=== PATIENT | male | born 1975 | race Two or more races ===

== ENCOUNTER 2017-05-04 03:08 | Emergency (ER) | payer MEDICAID ==
[~2017-05-04] VITALS: Ht 170.2 cm; Wt 81.6 kg
[2017-05-04 03:56] LABS: Urine Bilirubin Negative (Negative); Urine Blood TRACE /uL (Negative); Urine Color Yellow (Yellow); Urine Glucose Normal (Normal); Urine Ketone Negative (Negative); Urine Mucus FEW (None Seen); Urine Nitrite Negative (Negative); Urine RBC 1 /hpf (0 - 3); Urine Urobilinogen Normal (Negative); Urine pH 5.5 (5.0-8.0)
[2017-05-04 04:03] LABS: Basophils # (auto) 0 uL; Basophils % (auto) 0.6 % (0.0-2.0); CONDITION Y; Eosinophils # (auto) 0.2 uL; Eosinophils % (auto) 3.5 % (0.0-7.0); Hematocrit 43.9 % (41.0-53.0); Hemoglobin 14.8 g/dL (13.5-17.5); Lymphocytes # (auto) 2.8 uL; Lymphocytes % (auto) 45.1 % (10.0-50.0); Mean Corpuscular Hemoglobin 29.2 pg (28.0-32.0); Mean Corpuscular Hgb Conc. 33.6 g/dL (32.0-36.0); Mean Corpuscular Volume 86.9 fL (80.0-100.0); Mean Platelet Volume 8.4 fL (7.4-10.4); Monocytes # (auto) 0.4 uL; Monocytes % (auto) 6.4 % (0.0-12.0); Neutrophils # (auto) 2.8 uL; Neutrophils % (auto) 44.4 % (37.0-80.0); Platelet Count (auto) 282 10^3/uL (140-450); Red Cell Distribution Width 13.4 % (11.6-16.0); White Blood Cell 6.3 10^3/uL (4.4-10.8)
[2017-05-04 04:13] LABS: INR 0.95 (0.9-1.15); Partial Thromboplastin Time 26.1 sec (22.64-33.71); Prothrombin Time 10.4 sec (9.37-12.3)
[2017-05-04 04:25] LABS: Albumin 3.7 g/dL (3.4-5.0); BUN/Creatinine Ratio 23.5; Bilirubin, Total 0.4 mg/dL (0.2-1.0); Calcium 8.6 mg/dL (8.5-10.1); Magnesium 2.5 mg/dL (1.6-2.6); Potassium 3.7 mmol/L (3.5-5.1); Total Protein 6.6 g/dL (6.4-8.2)
[2017-05-04 04:27] LABS: B-Type Natriuretic Peptide 9.99 pg/mL (0-100)
[2017-05-04 04:31] LABS: Temperature: 23.5 C (20.0-25.0)
[2017-05-04 06:57] VITALS: BP 108/67
== END 2017-05-04 07:12 | disposition home or self-care (01) ==
LOC: ER 03:08
DX: F41.9 Anxiety disorder, unspecified (principal); R51 Headache
CPT/HCPCS: 36415; 71010; 80053; 80307; 81001; 83735; 83880; 84484; 85025; 85610; 85730; 93005

== ENCOUNTER 2017-05-23 23:32 | Emergency (ER) | payer MEDICAID ==
[~2017-05-23] VITALS: Ht 167.6 cm; Wt 81.6 kg
[2017-05-24 00:09] LABS: Basophils # (auto) 0 uL; Basophils % (auto) 0.5 % (0.0-2.0); Eosinophils # (auto) 0.1 uL; Eosinophils % (auto) 0.9 % (0.0-7.0); Hematocrit 43.7 % (41.0-53.0); Hemoglobin 14.9 g/dL (13.5-17.5); Lymphocytes # (auto) 3.1 uL; Lymphocytes % (auto) 37.3 % (10.0-50.0); Mean Corpuscular Hemoglobin 29.7 pg (28.0-32.0); Mean Corpuscular Volume 87.2 fL (80.0-100.0); Mean Platelet Volume 8.3 fL (7.4-10.4); Monocytes # (auto) 0.4 uL; Monocytes % (auto) 5.1 % (0.0-12.0); Neutrophils # (auto) 4.7 uL; Neutrophils % (auto) 56.2 % (37.0-80.0); Platelet Count (auto) 293 10^3/uL (140-450); Red Cell Distribution Width 12.2 % (11.6-16.0); White Blood Cell 8.3 10^3/uL (4.4-10.8)
[2017-05-24 00:26] LABS: Albumin 3.9 g/dL (3.4-5.0); Anion Gap 9 (5-15); Aspartate Aminotransferase 16 U/L (15-37); BUN/Creatinine Ratio 19.8; Blood Urea Nitrogen 16 mg/dL (7-18); Calcium 8.3 mg/dL (8.5-10.1); Carbon Dioxide 24 mmol/L (21-32); Chloride 109 mmol/L (98-107); GFR African American 133 mL/min; GFR Non-African American 110 mL/min; Glucose 101 mg/dL (74-106); Magnesium 2.2 mg/dL (1.6-2.6); Potassium 3.7 mmol/L (3.5-5.1); Sodium 142 mmol/L (136-145)
[2017-05-24 00:29] LABS: B-Type Natriuretic Peptide 13.2 pg/mL (0-100)
[2017-05-24 00:31] LABS: Alkaline Phosphatase 60 U/L (45-117); Bilirubin, Total 0.5 mg/dL (0.2-1.0); Total Protein 7.3 g/dL (6.4-8.2)
[2017-05-24] MEDS ORDERED: ONDANSETRON HCL 4 MG/2 ML VIAL IV ONE (01:00)
[2017-05-24] MEDS ORDERED: MORPHINE SULF INJ 2 MG/ML SYRINGE 1ML IV ONE (01:00)
[2017-05-24 03:00] VITALS: BP 103/71
== END 2017-05-24 03:31 | disposition home or self-care (01) ==
LOC: ER 23:34
DX: S16.1XXA Strain of muscle, fascia and tendon at neck level, initial encounter (principal); R07.89 Other chest pain; M79.602 Pain in left arm; X58.XXXA Exposure to other specified factors, initial encounter; Y93.89 Activity, other specified; Y92.89 Other specified places as the place of occurrence of the external cause; Y99.8 Other external cause status
CPT/HCPCS: 36415; 71010; 80053; 83735; 83880; 84484; 85025; 85379; 93005; 94761; 96374; 96375; 99285; J2270; J2405

== ENCOUNTER 2019-06-22 17:41 | Emergency (ER) | payer SELFPAY ==
[~2019-06-22] VITALS: Ht 170.2 cm; Wt 81.6 kg
[2019-06-22] MEDS ORDERED: SODIUM CHLORIDE 0.9% 1,000 ML IV ONE (19:00)
[2019-06-22] MEDS ORDERED: cefTRIAXone 1GM/50ML D5W 50 ML IV ONE (19:00)
[2019-06-22] MEDS ORDERED: MORPHINE SULFATE 4 MG/ML SYR/VIAL IV ONE ×2 (19:00→21:00)
[2019-06-22] MEDS ORDERED: ONDANSETRON HCL 4 MG/2 ML VIAL IV ONE (19:00)
[2019-06-22] MEDS ORDERED: MIDAZOLAM HCL 0 ML IV ONE (19:16)
[2019-06-22] MEDS ORDERED: MIDAZOLAM DRIP 50 mg/50mL 50 ML IV ONE (19:17)
[2019-06-22 19:39] LABS: Basophils # (auto) 0 uL; Basophils % (auto) 0.5 % (0.0-2.0); Eosinophils # (auto) 0.1 uL; Eosinophils % (auto) 1.3 % (0.0-7.0); Hemoglobin 14.2 g/dL (13.5-17.5); Lymphocytes # (auto) 1.9 uL; Lymphocytes % (auto) 23.4 % (10.0-50.0); Mean Corpuscular Hemoglobin 29.6 pg (28.0-32.0); Mean Corpuscular Hgb Conc. 33.9 g/dL (32.0-36.0); Mean Corpuscular Volume 87.3 fL (80.0-100.0); Monocytes # (auto) 0.5 uL; Monocytes % (auto) 5.5 % (0.0-12.0); Neutrophils # (auto) 5.7 uL; Neutrophils % (auto) 69.3 % (37.0-80.0); Platelet Count (auto) 240 10^3/uL (140-450); Red Blood Cells 4.81 10^6/uL (4.5-5.90); Red Cell Distribution Width 13.1 % (11.8-14.3); White Blood Cell 8.3 10^3/uL (4.4-10.8)
[2019-06-22 19:59] LABS: INR 0.93 (0.9-1.15); Partial Thromboplastin Time 23.4 sec (23.64-32.05)
[2019-06-22 20:01] LABS: Albumin 3.7 g/dL (3.4-5.0); Calcium 8.1 mg/dL (8.5-10.1); Potassium 3.8 mmol/L (3.5-5.1)
[2019-06-22 20:03] LABS: Bilirubin, Total 0.3 mg/dL (0.2-1.0)
[2019-06-22 21:00] VITALS: BP 127/91
[2019-06-22] MEDS ORDERED: HYDROcodone-ACET 5/325MG TAB PO ONE (22:30)
== END 2019-06-22 23:34 | disposition home or self-care (01) ==
LOC: ER 17:47
DX: S62.301B Unspecified fracture of second metacarpal bone, left hand, initial encounter for open fracture (principal); E78.5 Hyperlipidemia, unspecified; W22.8XXA Striking against or struck by other objects, initial encounter; Y93.89 Activity, other specified; Y99.8 Other external cause status; Y92.89 Other specified places as the place of occurrence of the external cause
CPT/HCPCS: 29125; 36415; 73130; 73200; 80053; 82550; 85025; 85610; 85730; 96365; 96375; 96376; 99284; J0696; J2270; J2405; J7030; J2250

== ENCOUNTER 2024-01-01 18:05 | Inpatient (IN) | payer SELFPAY ==
[~2024-01-01] VITALS: Ht 167.6 cm; Wt 82.5 kg
[2024-01-01 18:47] LABS: Basophils # (auto) 0 10 ^3/uL (0-0.2); Basophils % (auto) 0.6 % (0.0-2.0); Eosinophils # (auto) 0.3 10 ^3/uL (0-0.8); Eosinophils % (auto) 3.6 % (0.0-7.0); Hematocrit 44.3 % (41.0-53.0); Lymphocytes # (auto) 3.7 10 ^3/uL (0.4-5.4); Lymphocytes % (auto) 49.9 % (10.0-50.0); Mean Corpuscular Hemoglobin 29.4 pg (28.0-32.0); Mean Corpuscular Hgb Conc. 33.9 g/dL (32.0-36.0); Mean Corpuscular Volume 86.7 fL (80.0-100.0); Monocytes # (auto) 0.4 10 ^3/uL (0-1.3); Neutrophils % (auto) 40.9 % (37.0-80.0); Nucleated Red Blood Cells % 0.1 %; Red Blood Cells 5.11 10^6/uL (4.5-5.90); Red Cell Distribution Width 13.2 % (11.8-14.3); White Blood Cell 7.4 10^3/uL (4.4-10.8)
[2024-01-01 19:02] LABS: Alanine Aminotransferase 42 U/L (7-40); Albumin 4.5 g/dL (3.2-4.8); Alkaline Phosphatase 68 U/L (46-116); Anion Gap 7 (5-15); Aspartate Aminotransferase 27 U/L (13-40); BUN/Creatinine Ratio 16.3 (10.0-20.0); Blood Urea Nitrogen 15 mg/dL (9-23); Calcium 9.7 mg/dL (8.7-10.4); Carbon Dioxide 27 mmol/L (20-30); Chloride 105 mmol/L (98-107); Glucose 117 mg/dL (74-106); Magnesium 2.4 mg/dL (1.6-2.6); Potassium 3.8 mmol/L (3.5-5.1); Sodium 139 mmol/L (136-145)
[2024-01-01 19:03] LABS: Bilirubin, Total 0.5 mg/dL (0.2-1.0); INR 0.95 (0.9-1.15); Partial Thromboplastin Time 26.5 SEC (24.5-34.5); Total Protein 6.8 g/dL (5.7-8.2)
[2024-01-01] MEDS: SODIUM CHLORIDE 0.9% 1,000 ML IV ONE (19:03)
[2024-01-01] MEDS: ASPirin 325 MG TAB PO ONE (19:06)
[2024-01-01] MEDS: NITROGLYCERIN 0.4 MG SL TAB SL ONE (19:07)
[2024-01-01] MEDS: IOHEXOL 350 MG/ML 100ML IJ ONE (20:23)
[2024-01-01 20:34] LABS: Urine Bacteria NONE SEEN /hpf (None Seen); Urine Blood TRACE /uL (Negative); Urine Clarity Clear (Clear); Urine Color Colorless (Yellow); Urine Protein, UAD Negative (Negative); Urine Specific Gravity 1.017 (1.001-1.035); Urine Urobilinogen Normal (Negative); Urine WBC 1 /hpf (0 - 3); Urine pH 6.5 (5.0-8.0)
[2024-01-01 20:48] LABS: Amphetamine Screen, Urine Neg (NEGATIVE); Barbiturate Scree,Urine Neg (NEGATIVE); Benzodiazephine Screen, Urine Neg (NEGATIVE); Cocaine Screen, Urine Neg (NEGATIVE)
[2024-01-01 20:49] LABS: Cannabinoid Screen, Urine Neg (NEGATIVE); Opiate Scree,Urine Neg (NEGATIVE); Phencyclidine Screen, Urine Neg (NEGATIVE)
[2024-01-01] MEDS ORDERED: MORPHINE SULFATE INJ 2 MG/ml SYRG IV PRN ×2 (23:45)
[2024-01-01] MEDS ORDERED: ONDANSETRON HCL 4 MG/2 ML VIAL IV PRN (23:45)
[2024-01-01] MEDS ORDERED: HYDROcodone-ACET 5/325MG TAB PO PRN (23:45)
[2024-01-01] MEDS ORDERED: NITROGLYCERIN 0.4 MG SL TAB SL PRN (23:45)
[2024-01-01] MEDS ORDERED: DOCUSATE SOD 100 MG CAP PO PRN (23:45)
[2024-01-02] MEDS: SODIUM CHLORIDE 0.9% 1,000 ML IV SCH (00:30)
[2024-01-02 06:43] LABS: Basophils # (auto) 0 10 ^3/uL (0-0.2); Basophils % (auto) 0.5 % (0.0-2.0); Eosinophils # (auto) 0.3 10 ^3/uL (0-0.8); Eosinophils % (auto) 3.5 % (0.0-7.0); Hematocrit 43.9 % (41.0-53.0); Hemoglobin 14.6 g/dL (13.5-17.5); Lymphocytes # (auto) 3.3 10 ^3/uL (0.4-5.4); Lymphocytes % (auto) 47.1 % (10.0-50.0); Mean Corpuscular Hemoglobin 28.9 pg (28.0-32.0); Mean Corpuscular Hgb Conc. 33.1 g/dL (32.0-36.0); Mean Corpuscular Volume 87.2 fL (80.0-100.0); Monocytes # (auto) 0.5 10 ^3/uL (0-1.3); Monocytes % (auto) 6.8 % (0.0-12.0); Neutrophils % (auto) 42.1 % (37.0-80.0); Nucleated Red Blood Cells % 0.2 %; Red Blood Cells 5.04 10^6/uL (4.5-5.90); Red Cell Distribution Width 13.5 % (11.8-14.3); White Blood Cell 7.1 10^3/uL (4.4-10.8)
[2024-01-02 06:49] LABS: Alanine Aminotransferase 37 U/L (7-40); Albumin 4.3 g/dL (3.2-4.8); Alkaline Phosphatase 68 U/L (46-116); Anion Gap 2 (5-15); Aspartate Aminotransferase 20 U/L (13-40); BUN/Creatinine Ratio 14.9 (10.0-20.0); Blood Urea Nitrogen 11 mg/dL (9-23); Carbon Dioxide 28 mmol/L (20-30); Chloride 110 mmol/L (98-107); Glucose 89 mg/dL (74-106); Sodium 140 mmol/L (136-145)
[2024-01-02 06:50] LABS: Bilirubin, Total 0.7 mg/dL (0.2-1.0); Total Protein 6.5 g/dL (5.7-8.2)
[2024-01-02 09:17] LABS: Triglycerides 162 mg/dL (< 150)
[2024-01-02 09:18] LABS: LDL Cholesterol 195 mg/dL (< 100)
[2024-01-02 09:19] LABS: Cholesterol 247 mg/dL (< 200); HDL Cholesterol 45 mg/dL (40-59)
[2024-01-02] MEDS: ASPirin 81 mg TAB PO SCH (11:07)
[2024-01-02 11:09] VITALS: PULSE 80; RESP 19; O2SAT 96
[2024-01-02 17:50] VITALS: BP 126/81; PULSE 73; RESP 16; TEMP 98.7; O2SAT 95
[2024-01-02] MEDS: ACETAMINOPHEN 325 MG TAB PO PRN (18:34)
[2024-01-02] MEDS ORDERED: SERT-160 PO (19:20)
[2024-01-02 20:00] VITALS: PULSE 70
[2024-01-02] MEDS: ATORVASTATIN 20 MG TAB PO SCH (21:10)
[2024-01-02 22:00] VITALS: BP 101/59; PULSE 71; RESP 19; TEMP 98.2; O2SAT 91
[2024-01-02] MEDS ORDERED: ATORVASTATIN 20 MG TAB PO SCH (22:00)
[2024-01-03 05:00] VITALS: BP 107/71; PULSE 64; RESP 19; TEMP 97.7; O2SAT 95
[2024-01-03 08:00] VITALS: PULSE 63
[2024-01-03 08:50] VITALS: BP 104/66; PULSE 60; RESP 18; TEMP 98.2; O2SAT 98
[2024-01-03 12:22] LABS: Basophils # (auto) 0 10 ^3/uL (0-0.2); Basophils % (auto) 0.7 % (0.0-2.0); Eosinophils # (auto) 0.2 10 ^3/uL (0-0.8); Eosinophils % (auto) 2.9 % (0.0-7.0); Hemoglobin 14.5 g/dL (13.5-17.5); Lymphocytes # (auto) 2.9 10 ^3/uL (0.4-5.4); Lymphocytes % (auto) 44.7 % (10.0-50.0); Mean Corpuscular Hemoglobin 29.2 pg (28.0-32.0); Mean Corpuscular Hgb Conc. 33.6 g/dL (32.0-36.0); Mean Corpuscular Volume 86.8 fL (80.0-100.0); Monocytes # (auto) 0.4 10 ^3/uL (0-1.3); Monocytes % (auto) 5.6 % (0.0-12.0); Neutrophils % (auto) 46.1 % (37.0-80.0); Nucleated Red Blood Cells % 0.2 %; Red Blood Cells 4.96 10^6/uL (4.5-5.90); Red Cell Distribution Width 13.3 % (11.8-14.3); White Blood Cell 6.5 10^3/uL (4.4-10.8)
[2024-01-03 12:34] LABS: Chloride 108 mmol/L (98-107); Potassium 3.8 mmol/L (3.5-5.1); Sodium 140 mmol/L (136-145)
[2024-01-03 12:35] LABS: Anion Gap 5 (5-15); Carbon Dioxide 27 mmol/L (20-30)
[2024-01-03 12:36] LABS: Calcium 8.7 mg/dL (8.5-10.1)
[2024-01-03 12:40] LABS: BUN/Creatinine Ratio 13.3 (10.0-20.0); Blood Urea Nitrogen 10 mg/dL (9-23); Glucose 84 mg/dL (74-106)
[2024-01-03 12:59] LABS: Erythrocyte Sedimentation Rate 2 mm/hr (0-20)
[2024-01-03 13:00] VITALS: BP 106/64; PULSE 60; RESP 18; TEMP 98; O2SAT 95
[2024-01-03 13:01] LABS: Magnesium 1.9 mg/dL (1.6-2.6)
[2024-01-03] MEDS ORDERED: ATO40T PO (13:27)
[2024-01-03] MEDS ORDERED: ASPI-325 PO (13:27)
[2024-01-03 13:32] LABS: COVID19 ANTIGEN SOFIA FIA NEGATIVE (NEGATIVE)
[2024-01-03 13:34] LABS: Rapid Influenza A Negative (Negative); Rapid Influenza B Negative (Negative)
[2024-01-03 16:00] VITALS: BP 102/62; PULSE 69; RESP 18; TEMP 98; O2SAT 93
== END 2024-01-03 17:55 | disposition home or self-care (01) | DRG 311 ==
LOC: ER 18:05 → TELE 23:44 → TELE-WESTW 01-02 17:43
PROVIDERS: ADMIT Internal Medicine Geriatric Medicine; ATTEND Neuromusculoskeletal Medicine & OMM
DX: I20.0 Unstable angina (principal); F41.9 Anxiety disorder, unspecified; E78.5 Hyperlipidemia, unspecified; Z20.822 Contact with and (suspected) exposure to COVID-19; E66.9 Obesity, unspecified; R73.03 Prediabetes; Z68.29 Body mass index [BMI] 29.0-29.9, adult
CPT/HCPCS: 36415; 71045; 71275; 78452; 80048; 80053; 80061; 80307; 81001; 83036; 83690; 83735; 83880; 84443; 84484; 85025; 85379; 85610; 85652; 85730; 86141; 87426; 87804; 93005; 93017; 93306; G0378